=== PATIENT | male | born 1960 | race Two or more races ===

== ENCOUNTER 2021-06-29 15:12 | Emergency (ER) | payer MEDICAID ==
[~2021-06-29] VITALS: Ht 175.3 cm; Wt 85.0 kg
[2021-06-29] MEDS ORDERED: IBUPROFEN 800MG TABLET PO ONE (15:45)
[2021-06-29 15:56] VITALS: BP 122/83
[2021-06-29] MEDS ORDERED: IBUP-2030 MT (16:05)
== END 2021-06-29 16:29 | disposition home or self-care (01) ==
LOC: ER 15:12
DX: R07.89 Other chest pain (principal); I10 Essential (primary) hypertension; Y08.89XA Assault by other specified means, initial encounter; Y93.89 Activity, other specified; Y92.488 Other paved roadways as the place of occurrence of the external cause
CPT/HCPCS: 71045; 93005; 99283